=== PATIENT | male | born 1930 | race Caucasian/White ===

== ENCOUNTER 2016-06-16 01:29 | Emergency (ER) | payer OTHER, MEDICARE ==
[~2016-06-16] VITALS: Ht 172.7 cm; Wt 70.5 kg
[2016-06-16 01:37] VITALS: BP 128/76; PULSE 69; RESP 16; TEMP 97.6; O2SAT 100
[2016-06-16] MEDS ORDERED: METO50TA PO (02:04)
[2016-06-16] MEDS ORDERED: APIX5TAB PO (02:04)
[2016-06-16] MEDS ORDERED: ZETI10TA5 PO (02:04)
[2016-06-16] MEDS ORDERED: LISI10TA3 PO (02:04)
[2016-06-16] MEDS ORDERED: LIPI80TA PO (02:04)
--- NOTE | 2016-06-16 03:20 | PD ---
HPI Chief Complaint: Bleeding Time Seen by Provider: 03:08 Travel History International Travel<30 days: No Contact w/Intl Traveler<30days: No Traveled to known affect area: No History of Present Illness HPI The patient is an 86-year-old male that was operated on by Dr. Drew on Thursday on his right ear, cancers were removed from the site. He started bleeding from one of the stitches about 27 hours ago. He noticed that the bleeding stopped when he got up out of bed in the daytime. The patient went to bed, lying on his back, and the bleeding resumed tonight. He comes in because of bleeding. The patient is on Eliquis for atrial fibrillation. Dr. Drew arrange for a nurse to come at 10 AM every morning to change his bandage. 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) Pacemaker: Yes Social History Alcohol Use: No Tobacco Use: No Substance Use: No Allergies-Medications (Allergen,Severity, Reaction): Coded Allergies: No Known Allergies (Unverified , 06/16/16) Reported Meds & Prescriptions Reported Meds & Active Scripts Active Reported Zetia (Ezetimibe) 10 Mg Tab 10 Mg PO DAILY Lipitor (Atorvastatin Calcium) 80 Mg Tab 80 Mg PO HS Lisinopril 10 Mg Tab 10 Mg PO DAILY Metoprolol Tartrate 50 Mg Tab 50 Mg PO BID Eliquis (Apixaban) 5 Mg Tab 5 Mg PO BID Review of Systems Except as stated in HPI: all other systems reviewed are Neg Physical Exam Narrative GENERAL: Well-nourished, well-developed patient in no apparent distress except for his persistent bleeding from the right ear. SKIN: Warm and dry. There is a slow bleed coming from the stitch above the most inferior stitch on his pinna. Wound seal was put on (hydrophilic polymer and potassium ferrate) and the bleeding ultimately stopped. HEAD: Normocephalic. EYES: No scleral icterus. No injection or drainage. NECK: Supple, trachea midline. No JVD or lymphadenopathy. CARDIOVASCULAR: Regular rate and rhythm without murmurs, gallops, or rubs. RESPIRATORY: Breath sounds equal bilaterally. No accessory muscle use. GASTROINTESTINAL: Abdomen soft, non-tender, nondistended. MUSCULOSKELETAL: No cyanosis, or edema. BACK: Nontender without obvious deformity. No CVA tenderness. Data Data Last Documented VS Vital Signs Date Time Temp Pulse Resp B/P Pulse Ox O2 Delivery O2 Flow Rate FiO2 06/16/16 01:50 18 100 06/16/16 01:37 97.6 69 128/76 [facility] Medical Decision Making Medical Screen Exam Complete: Yes Emergency Medical Condition: Yes Medical Record Reviewed: Yes Differential Diagnosis Postoperative bleeding, coagulopathy, anemiahighly unlikely Narrative Course The patient has postoperative bleeding with a Eliquis coagulopathy. He does well as long as he doesn't lie on his back and the pillow hit the year and resume the bleeding. Unfortunately, he will have to sit in the upright position until the nurse comes around 10 AM this morning. Diagnosis Primary Impression: Postoperative hemorrhage of ear following procedure on ear Additional Impression: Coagulopathy Additional Instructions: Unfortunately, when you lie down it knocks off a clot on your ear and you start bleeding again. It is necessary to sit upright and tell the nurse sees you at 10 AM this morning. Hopefully, the nurse can call Dr. Drew this morning. Med/Other Pt SpecificInfo: No Change to Meds Disposition: 01 DISCHARGE HOME Condition: Stable Segundo Breaux MD Jun 16, 2016 03:19
[2016-06-16 03:49] VITALS: BP 147/74
== END 2016-06-16 03:51 | disposition home or self-care (01) ==
LOC: PHED 01:29
DX: L76.21 Postprocedural hemorrhage of skin and subcutaneous tissue following a dermatologic procedure (principal); D68.9 Coagulation defect, unspecified; I48.91 Unspecified atrial fibrillation; E78.00 Pure hypercholesterolemia, unspecified; I25.2 Old myocardial infarction; Z79.01 Long term (current) use of anticoagulants
CPT/HCPCS: 12011